=== PATIENT | female | born 1955 | race Caucasian/White ===

== ENCOUNTER 2022-12-05 18:28 | Emergency (ER) | payer MEDICARE, OTHER, SELFPAY ==
--- NOTE | ~2022-12-05 | CT_ITS ---
EXAMINATION: CT brain wo con DATE: 12/05/2022 19:35 INDICATION: head trauma . TECHNIQUE: Computed tomography (CT) of the head was performed without intravenous contrast. The mA wa s adjusted according to patient size. Iterative reconstruction technique was employed. The dose-lengt h product was 605.33 mGy-cm. COMPARISON: None. FINDINGS: No acute intracranial hemorrhage or extra-axial fluid collection. No hydrocephalus, mass, or herniation. No acute ischemic infarct. Unremarkable dural venous sinus attenuation. No acute osseous abnormality. Left posterior scalp contusion/hematoma The aerated spaces are clear. Mild atrophy and chronic white matter change. Atherosclerotic intracranial calcification. Bilateral b marcelino ganglia calcification. IMPRESSION: No acute intracranial process. Reviewed, dictated and finalized at location K.
--- NOTE | ~2022-12-05 | CT_ITS ---
EXAMINATION: CT facial & cervical spine wo DATE: 12/05/2022 19:35 INDICATION: jaw pain TECHNIQUE: Computed tomography (CT) of the maxillofacial region and cervical spine was performed with out intravenous contrast. Automated exposure control and iterative reconstruction technique were empl oyed. The dose-length product was 576.42 mGy-cm. COMPARISON: None FINDINGS: CERVICAL: Vertebral Body Alignment: Intact. Craniocervical and atlantoaxial alignment: Moderate degenerative change. Alignment intact. Osseous structures/fracture: No evidence of a lytic or blastic process in the visualized spine. No e vidence of acute fracture. Cervical soft tissues: The paraspinal soft tissues planes are maintained. Degenerative changes: Degenerative changes, without severe neural foraminal or central canal narrowin g. FACE: Soft Tissues: No significant superficial soft tissue swelling. Facial bones: No acute fracture. No lytic or blastic process. Eyes: The globes are intact. The soft tissue planes of the orbits are maintained. Paranasal Sinuses: Trace left mastoid fluid, without fracture or erosion. The visualized paranasal s inuses are clear. Foreign Bodies: No radiopaque foreign bodies. Other Findings: None. IMPRESSION: No acute fracture or traumatic malalignment in the cervical spine. No acute facial bone fracture. Reviewed, dictated and finalized at location K. IMPRESSION: No acute fracture or traumatic malalignment in the cervical spine. No acute fac ial bone fracture.
[2022-12-05 18:29] VITALS: BP 133/86; PULSE 112; RESP 16; TEMP 36.3; O2SAT 98
--- NOTE | 2022-12-05 19:17 | ECG_ITS ---
Measurements Intervals [place] Rate: 109 P: ID: 0 QRS: -4 QRSD: 85 T: 32 QT: 343 QTc: 463 Interpretive Statements ATRIAL FIBRILLATION WITH RAPID VENTRICULAR RESPONSE COMPARED TO ECG 03/18/2019 09:51:18 ATRIAL FIBRILLATION NOW PRESENT Electronically Signed On 12-06-2022 15:57:33 CDT by Jeremy Ortiz M.D.
--- NOTE | 2022-12-05 21:13 | ED.HEATRA ---
HPI - Head Injury General Chief complaint: Head Injury Stated complaint: fall on thinners Time Seen by Provider: 12/05/22 19:08 History of Present Illness HPI Narrative: Patient presents to the emergency department with head trauma after a fall. She was walking up a path of large stones when she slipped. Fell back hitting the back of her head. Denies loss of consciousness. Denies neck pain. States her jaw hurts but cannot tell if her teeth are in alignment or not. Denies other injuries. Patient takes Pradaxa due to history of A-fib Related Data Home Medications Medication Instructions Recorded Confirmed cyanocobalamin (vitamin B-12) 1,000 mcg PO DAILY 03/14/19 07/04/22 1,000 mcg tablet,extended release (Vitamin B-12 ER) dabigatran etexilate 150 mg 150 mg PO BID 03/14/19 07/04/22 capsule (Pradaxa) ibuprofen 400 mg tablet 400 mg PO BID PRN Pain 03/14/19 07/04/22 atenolol 25 mg tablet 25 mg PO BID 02/17/22 07/04/22 doxycycline hyclate 20 mg tablet 20 mg PO Q12H 06/29/22 07/04/22 diltiazem HCl 360 mg 360 mg PO DAILY 07/14/22 tablet,extended release 24 hr dabigatran etexilate 150 mg mg PO 12/05/22 capsule (Pradaxa) nystatin 100,000 unit/gram topical topical 12/05/22 cream potassium chloride 20 mEq/15 mL meq 12/05/22 oral liquid torsemide 100 mg tablet mg 12/05/22 12/05/22 Allergies Allergy/AdvReac Type Severity Reaction Status Date / Time erythromycin base Allergy Unknown Hives Verified 12/05/22 18:48 metoprolol Allergy Unknown Unknown Verified 12/05/22 18:48 Penicillins Allergy Unknown Hives Verified 12/05/22 18:48 latex Allergy ITCHING/HIV Verified 12/05/22 18:48 ES cephalexin AdvReac Unknown YEAST Verified 12/05/22 18:48 INFECTION acetaminophen [From Tylenol] AdvReac Dizziness Verified 12/05/22 18:48 amiodarone AdvReac Blurry Verified 12/05/22 18:48 Vision Review of Systems Review of Systems: Review of systems negative except what is documented in the HPI [facility] Past Medical History Medical History A-fib Depression History of IBS HTN (hypertension) Hx of migraines Hyperlipidemia (normal spontaneous vaginal delivery) x 3 Obesity Periorificial dermatitis Pre-diabetes Stress incontinence Surgical History Surgical History S/P laparoscopic cholecystectomy S/P laparoscopy S/P tonsillectomy Family History Family History Father Hypertension Patient's father is Mother Hypertension Patient's mother is Sibling Family history of elevated blood lipids Cerebrovascular accident Acute myocardial infarction Social History Social History Smoking packs per day: 2.5 Smoking cigarettes per day: 50.0 Years smoked: 25 Smoking pack-years: 62.50 Smoking status: Former smoker Alcohol intake: current Alcohol use details: social Substance use: never Substance use type: does not use Lack of Transportation: No Lack of Food: Never True Current Housing: I Have Housing Concerned About Future Housing: No Difficulty Paying Gas/Electric Bills: No Difficulty Paying for Meds: No Currently Unemployed: No Difficulty w/ Childcare or Family Care: No Living arrangements: alone Occupation/Education: retired Gender identity (if verbalized by the patient): Female Exam Narrative: GENERAL: Well-appearing, well-nourished, and in no acute distress. HEAD: Normocephalic, posterior scalp contusion EYES: PERRLA and EOMI. ENT: Nares clear, no rhinorrhea or epistaxis. Mucous membranes moist. NECK: Supple. CHEST: Clear to auscultation. No respiratory distress. HEART: Regular rate and rhythm. ABDOMEN: Soft, nontender, nondistended. EXTREMITIES: Normal range of motion. No edema.
[2022-12-05 21:31] VITALS: BP 160/108; PULSE 122; RESP 15; O2SAT 100
== END 2022-12-05 21:32 | disposition home or self-care (01) ==
PROVIDERS: Emergency Provider Emergency Medicine
DX: S00.03XA Contusion of scalp, initial encounter (principal); R68.84 Jaw pain; I48.11 Longstanding persistent atrial fibrillation; I10 Essential (primary) hypertension; E78.5 Hyperlipidemia, unspecified; R73.03 Prediabetes; E66.9 Obesity, unspecified; Z68.39 Body mass index [BMI] 39.0-39.9, adult; K58.9 Irritable bowel syndrome, unspecified; Z87.891 Personal history of nicotine dependence; Z90.49 Acquired absence of other specified parts of digestive tract; Z79.02 Long term (current) use of antithrombotics/antiplatelets; W01.0XXA Fall on same level from slipping, tripping and stumbling without subsequent striking against object, initial encounter
CPT/HCPCS: 70450; 70486; 72125; 93005; 99284

== ENCOUNTER 2023-02-01 16:55 | Emergency (ER) | payer MEDICARE, OTHER, SELFPAY ==
[2023-02-01] VITALS (20 sets, daily range): BP systolic 110–177; BP diastolic 88–122; PULSE 106–151; RESP 15–20; TEMP 36.4; O2SAT 94–100
--- NOTE | ~2023-02-01 | XR_ITS ---
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 RESULT: Lines, tubes, and devices: Partially visualized left proximal humeral fixation hardware with osteope brianna in the femoral head and perihilar hardware lucency at a proximal screw. Lungs and pleura: Clear. Cardiomediastinal silhouette: Stable. Other: No acute osseous or upper abdominal finding. IMPRESSION: No acute cardiopulmonary process. Potential hardware related consultation in the proximal left humerus with perihilar hardware lucency and generalized osteopenia. Correlate for shoulder pain consider dedicated radiographs of the left sh oulder and humerus for further evaluation. Reviewed, dictated and finalized at location K. E PRESSER IMPRESSION: No acute cardiopulmonary process. Potential hardware related consultation in the proximal left humerus with perih ilar hardware lucency and generalized osteopenia. Correlate for shoulder pain c onsider dedicated radiographs of the left shoulder and humerus for further eval uation.
--- NOTE | 2023-02-01 20:09 | ECG_ITS ---
Measurements Intervals [place] Rate: 131 P: [place]: 0 QRS: -38 QRSD: 83 T: 23 QT: 301 QTc: 445 Interpretive Statements ATRIAL FIBRILLATION WITH RAPID VENTRICULAR RESPONSE COMPARED TO ECG 12/05/2022 20:16:44 NO SIGNIFICANT CHANGES Electronically Signed On 02-02-2023 9:17:41 [employer] by Jeremy Ortiz M.D.
[2023-02-01 20:41] LABS: Basophils Absolute Auto 0.1 K/mm3 (0.0-0.1); Basophils Percent Auto 0.5 % (0.2-1.2); Eosinophils Absolute Auto 0.1 K/mm3 (0-0.3); Eosinophils Percent Auto 0.6 % (0-4.4); Hematocrit 47.5 % (37.0-47.0); Hemoglobin 15.2 g/dL (12.0-15.0); Immature Granulocyte Absolute 0.06 K/mm3 (0.00-0.031); Immature Granulocyte Percent A 0.6 % (0-0.5); Lymphocytes Absolute Auto 3.34 K/mm3 (0.9-3.2); Lymphocytes Percent Auto 32.8 % (18.3-44.2); Mean Corpuscular Volume 87.5 fl (80-100); Mean Platelet Volume 9.8 fl (7.4-10.4); Monocytes Absolute Auto 0.7 K/mm3 (0.1-0.6); Monocytes Percent Auto 7.1 % (2.6-8.5); Neutrophils Absolute Auto 5.9 K/mm3 (1.3-6.7); Neutrophils Percent Auto 58.4 % (45.5-73.1); Platelet Count Result 292 k/mm3 (150-375); Red Blood Count 5.43 M/mm3 (4.2-5.4); Red Cell Distribution Width 13.2 % (11.5-14.5); White Blood Count 10.2 K/mm3 (4.5-10.0)
[2023-02-01 20:52] LABS: INR 1.2; Partial Thromboplastin Time 40.4 SECONDS (22.3-36.8); Prothrombin Time 15.5 Seconds (11.1-14.7)
[2023-02-01 21:15] LABS: Alanine Aminotransferase 32 U/L (6-35); Alkaline Phosphatase 101 U/L (38-126); Anion Gap 6 mmol/L (8-16); Aspartate Amino Transferase 31 U/L (14-36); Bilirubin,Total 0.8 mg/dL (0.2-1.3); Blood Urea Nitrogen 9 mg/dL (7-17); Calcium 9.4 mg/dL (8.4-10.2); Carbon Dioxide 31 mmol/L (22-30); Chloride 103 mmol/L (98-107); Estimated CRCL calculation 61 ml/min; Estimated Glomerular Filt Rate > 60; Glucose 100 mg/dL (65-110); Lipase 51 U/L (23-300); Potassium 3.6 mmol/L (3.4-5.0); Sodium 140 mmol/L (137-145)
[2023-02-01 21:27] LABS: Troponin I < 0.012 ng/mL (0.000-0.034)
[2023-02-01] MEDS: SODIUM CHLORIDE 0.9% IV 1,000 ML 999 ML IV CONT (22:58)
--- NOTE | 2023-02-01 23:11 | ED.RECABL ---
HPI - Recheck/Abnormal Lab/Rx General Chief Complaint: Recheck/Abnormal Lab/Rx Stated Complaint: HTN, leg wounds Time Seen by Provider: 02/01/23 21:39 History of Present Illness HPI narrative: Patient is a 67-year-old female with a history of AFib on Pradaxa, hypertension presenting with high blood pressure and headache. Patient states that she has a skin infection on her legs from a cat bite. Her doctor started her on an antibiotic which she took this morning. States that she developed a headache afterwards and she is concerned that it is related to the antibiotic. She checked her blood pressure at some point and it was elevated so then she became concerned that she was having a stroke. This prompted her to come in for evaluation. States that the infection on her legs has started to improve. States that her headache is now gone. States that her fringe knotter has recently changed some of her blood pressure medications and she thinks this is why it was so high. She denies fevers, chest pain, shortness of breath, abdominal pain, vomiting, dysuria, hematuria. Related Data Home Medications Medication Instructions Recorded Confirmed cyanocobalamin (vitamin B-12) 1,000 mcg PO DAILY 03/14/19 07/04/22 1,000 mcg tablet,extended release (Vitamin B-12 ER) dabigatran etexilate 150 mg 150 mg PO BID 03/14/19 07/04/22 capsule (Pradaxa) ibuprofen 400 mg tablet 400 mg PO BID PRN Pain 03/14/19 07/04/22 atenolol 25 mg tablet 25 mg PO BID 02/17/22 07/04/22 doxycycline hyclate 20 mg tablet 20 mg PO Q12H 06/29/22 07/04/22 diltiazem HCl 360 mg 360 mg PO DAILY 07/14/22 tablet,extended release 24 hr dabigatran etexilate 150 mg mg PO 12/05/22 capsule (Pradaxa) nystatin 100,000 unit/gram topical topical 12/05/22 cream potassium chloride 20 mEq/15 mL meq 12/05/22 oral liquid torsemide 100 mg tablet mg 12/05/22 12/05/22 Allergies Allergy/AdvReac Type Severity Reaction Status Date / Time erythromycin base Allergy Unknown Hives Verified 12/05/22 18:48 metoprolol Allergy Unknown Unknown Verified 12/05/22 18:48 Penicillins Allergy Unknown Hives Verified 12/05/22 18:48 latex Allergy ITCHING/HIV Verified 12/05/22 18:48 ES cephalexin AdvReac Unknown YEAST Verified 12/05/22 18:48 INFECTION acetaminophen [From Tylenol] AdvReac Dizziness Verified 12/05/22 18:48 amiodarone AdvReac Blurry Verified 12/05/22 18:48 Vision Review of Systems Review of Systems: All systems reviewed & are unremarkable except as noted in HPI and below PMFSH Past Medical History Medical History A-fib Depression History of IBS HTN (hypertension) Hx of migraines Hyperlipidemia (normal spontaneous vaginal delivery) x 3 Obesity Periorificial dermatitis Pre-diabetes Stress incontinence Surgical History Surgical History S/P laparoscopic cholecystectomy S/P laparoscopy S/P tonsillectomy Family History Family History Father Hypertension Patient's father is Mother Hypertension Patient's mother is Sibling Family history of elevated blood lipids Cerebrovascular accident Acute myocardial infarction Social History Social History Smoking packs per day: 2.5 Smoking cigarettes per day: 50.0 Years smoked: 25 Smoking pack-years: 62.50 Smoking status: Former smoker Alcohol intake: current Alcohol use details: social Substance use: never Substance use type: does not use Lack of Transportation: No Lack of Food: Never True Current Housing: I Have Housing Concerned About Future Housing: No Difficulty Paying Gas/Electric Bills: No Difficulty Paying for Meds: No Currently Unemployed: No Difficulty w/ Childcare or Family Care:
[2023-02-01] MEDS: dilTIAZem HCl INJ 25 MG/5 ML VIAL 10 MG IV PUSH (23:13)
[2023-02-01 23:56] LABS: Troponin I < 0.012 ng/mL (0.000-0.034)
[2023-02-02] VITALS (7 sets, daily range): PULSE 113–134; RESP 18–27; O2SAT 97–99
== END 2023-02-02 02:19 | disposition home or self-care (01) ==
PROVIDERS: Emergency Medicine; Emergency Provider Emergency Medicine
DX: R51.9 Headache, unspecified (principal); I48.91 Unspecified atrial fibrillation; I10 Essential (primary) hypertension; E78.5 Hyperlipidemia, unspecified; R73.03 Prediabetes; E66.9 Obesity, unspecified; Z68.38 Body mass index [BMI] 38.0-38.9, adult; K58.9 Irritable bowel syndrome, unspecified; Z87.891 Personal history of nicotine dependence; Z90.49 Acquired absence of other specified parts of digestive tract; Z79.02 Long term (current) use of antithrombotics/antiplatelets
CPT/HCPCS: 36415; 71045; 80053; 83690; 84484; 85025; 85610; 85730; 93005; 96361; 96374; 99284; J7030

== ENCOUNTER 2023-03-09 08:40 | Outpatient (CLI) | payer MEDICARE, OTHER, SELFPAY ==
--- NOTE | 2023-03-26 09:41 | WPDSLEEPSTUD ---
Sleep Study Date of Study: 03/09/23 Ordering Provider: Conor Block, Interpreting Physician: Liliana Arce MD Sleep Study Type: Split Polysomnogram Height: 1.55 m Weight: 93.44 kg Body Mass Index: 38.9 Neck Circumference (inches): 16 [place]: 9 Reason for Sleep Study Referred by Cardiology for concerns about obstructive sleep apnea; negative home sleep test 6 years ago. She has loud snoring and falls asleep in the day, even while driving. She has a deviated septum. Sleep History Keila Louie is a 67-year-old woman with atrial fibrillation and loud snoring. She never awakens from sleep short of breath. She never wakes at night with heartburn, belching or coughing.??She frequently snores, frequently snores loudly enough that others complain. She occasionally has trouble sleeping when she has a cold. She never wakes up gasping for breath during the night. She never has breathing problems at night. She never sweats excessively at night. She rarely notices her heart pounding or beating irregularly during the night. She frequently falls asleep during the day. She occasionally falls asleep involuntarily, and occasionally falls asleep while driving. She does not report having loss of muscle tone with strong emotion. She never feels paralyzed on waking or falling asleep. She frequently experiences vivid dreams upon waking or falling asleep. She never feels afraid of going to sleep. She rarely has nightmares. She frequently recalls her dreams. She never has thoughts racing through her mind. She never feels sad or depressed. She rarely feels anxiety. She never notices parts of her body jerk. She never kicks during the night. She never feels crawling or aching feelings in her legs. She frequently feels leg pain at night, due to arthritis in her knees. She has morning jaw pain, and does not report grinding her teeth at night. She occasionally feels bothered by pain during the day, is frequent awakened by pain during the night. She occasionally wakes up feeling stiff in the morning, rarely wakes feeling sore or achy in the morning. She frequently awakens with elvis joints, not her neck or spine. Normal bedtime is between 11:30 p.m. and midnight, falling asleep instantly, waking twice at night to use the bathroom and once at night to feed the cat at 4 in the morning. When she wakes to go to the bathroom, she is able to return to sleep within 3 or 4 minutes. When she feeds the cat, she is able to return to sleep within 20 minutes. Her cat wakes her at time in the night for attention. Her normal wake time is between 7:30 a.m. and 8:00 a.m.. She keeps the same schedule on weekends. She takes naps in the afternoon or evening. A short nap lasting 10-15 minutes is sometimes refreshing. Habits:??Tobacco: Stopped 23 years ago Caffeine: rarely, once a month. Alcohol: rarely, once a month. Recreational substances: none PMFSH Past Medical History Medical History A-fib Depression History of IBS HTN (hypertension) Hx of migraines Hyperlipidemia (normal spontaneous vaginal delivery) x 3 Obesity Periorificial dermatitis Pre-diabetes Stress incontinence Surgical History Surgical History S/P laparoscopic cholecystectomy S/P laparoscopy S/P tonsillectomy Family History Family History Father Hypertension Patient's father is Mother Hypertension Patient's mother is Sibling Family history of elevated blood lipids Cerebrovascular accident Acute myocardial infarction Social History Social History Smoking packs per day: 2.5 Smoking cigarettes per day: 50.0 Years smoked: 25 Smoking pack-years: 62.50 Smoking status: Former smoker Alcohol intake: c
[2023-03-26 12:02] VITALS: BMI 38.9
== END 2023-03-10 07:28 | disposition home or self-care (01) ==
LOC: ANHCSM 08:43
PROVIDERS: PCP Physician Assistant Medical; Visit Provider Internal Medicine Cardiovascular Disease
DX: R06.83 Snoring (principal); I10 Essential (primary) hypertension; E66.9 Obesity, unspecified; G47.33 Obstructive sleep apnea (adult) (pediatric); G47.61 Periodic limb movement disorder
CPT/HCPCS: 95811

== ENCOUNTER 2023-05-29 08:00 | Outpatient (RCR) | payer MEDICARE, OTHER, SELFPAY ==
--- NOTE | 2023-04-25 15:38 | OPREHPOC ---
Outpatient Therapy Plan of Care This is a Multidisciplinary Plan of Care that may contain components documented by all disciplines (PT, OT, and ST.) PT Problem 1 PT Problem #1 Knowledge Deficit PT Goal 1 Goal *indep with HEP * good safety awareness with mobility PT Problem 2 PT Problem #2 Impaired Vestibular Syste PT Goal 1 Goal improve vestibular system to increase mobility skills: 1* Dizziness Handicap Index self rating of 12% limitation 2* pt report NO falls perform without increase in symptoms: 3* supine/sit transfer 4* rolling in bed to R side 5* walking 50' with head motion R/L 3x each 6* walking 50' with head motion up/down 3x each 7* further assessment of vestibular system, eye tracking and neck involvement as treatment progresses
--- NOTE | 2023-04-25 15:38 | PTOPEVAL1 ---
Assessment and note entered by Arlin Foreman, PT Evaluation Information Assessment Status Evaluation Diagnosis dizziness Onset Dec Subjective Information onset in Dec with plane ride on vacation to [facility], with ears popping; intermittent symptoms; did have some dizziness with cardiac med--saw smoke jumper supervisor and meds were decreased; in the past 6 months have fallen 1x; have had a cough and not feeling well the past week, better now; had eye exam today and eyes were dilated, still a little dilated have meclazine, but rarely take it, not taken in the past 4 weeks tends to always sleep on her R side, due to L shoulder pain; history of vertigo; had the maneuver and it eased; have issues with constant ringing in both ears and decreased hearing- have never had a hearing test; Symptoms: off balance when walking, tend to walk to the L side--not straight; R posterior head feels funny; little nauseous;don't feel right; increase: quick head turns, look up decrease: sit down, relax; Activity: retired; able to do all of her home tasks and self care, but have to sit and rest when dizziness hits; Reported Pain Level Pain Score 1: Self Report Additional Pain Score Comments head feels funny, used to feeling bad and head hurting; also have issues with legs swelling--told smoke jumper supervisor, R knee pain; Assessment PT Clinical Summary Keila has the diagnosis of dizziness. Her history includes multiple risk factors for vestibular issues: history of vestibular issues, recent plane trip, post COVID issues, recent cold, chronic ringing in her ears, decreased hearing, neck pain, multiple falls with hitting her head, a fib, multiple meds. With the evaluation: testing positive for BPPV R anterior/posterior canals--able to clear with Eply maneuver. Education p
--- NOTE | 2023-04-25 15:59 | PCPTNOTE ---
pt was 10 min late for PT evaluation.
--- NOTE | 2023-07-10 13:13 | PTOPDC ---
Assessment and note entered by Arlin Foreman, PT Discharge Information Assessment Status Discharge - Pt Not Present Diagnosis dizziness Onset Dec Assessment PT Clinical Summary Keila has received 6 PT sessions from April 25 to May 28. She then stopped attending therapy. The goals were not addressed. Discharge PT. Plan of Care PT Services Indicated No
== END 2023-07-10 13:45 | disposition home or self-care (01) ==
LOC: ANHPT 08:00
PROVIDERS: PCP Physician Assistant Medical; Visit Provider Physician Assistant Medical
DX: H81.11 Benign paroxysmal vertigo, right ear (principal)
CPT/HCPCS: 95992; 97110; 97112; 97162; 97530